=== PATIENT | male | born 1960 | race Caucasian/White ===

== ENCOUNTER → 2016-07-08 | Outpatient (REF) | payer BC ==
[~2016-07-08] MED LIST: CITA10TA5 PO; COLA100C PO; ENAL10TA2 PO; MULTCAP PO; PERCOCET PO; TRUVTAB3 PO; TYLE167L PO; VALT1TAB PO
[2016-07-08 11:59] LABS: ALBUMIN 3.9 GM/DL (3.2-5.2); ALKALINE PHOSPHATASE 58 U/L (45-117); ALT/SGPT 27 U/L (12-78); ANION GAP 10 MEQ/L (8-16); AST/SGOT 18 U/L (15-37); BILIRUBIN,TOTAL 0.6 MG/DL (0.2-1.0); BLOOD UREA NITROGEN 12 MG/DL (7-18); CARBON DIOXIDE LEVEL 24 MEQ/L (21-32); CHLORIDE LEVEL 109 MEQ/L (98-107); CHOLESTEROL LEVEL 190 MG/DL (<200); CREATININE FOR GFR 1.07 MG/DL (0.70-1.30); GLOMERULAR FILTRATION RATE > 60.0 (>56); GLUCOSE, FASTING 95 MG/DL (70-105); POTASSIUM SERUM 4.9 MEQ/L (3.5-5.1); SODIUM LEVEL 143 MEQ/L (136-145); TOTAL PROTEIN 6.5 GM/DL (6.4-8.2); TRIGLYCERIDES LEVEL 119 MG/DL (<150)
[2016-07-10 00:07] LABS: %CD3+CD4+CD8+ 1.2 % (Not Estab.); %CD3+CD4+CD8- 30.8 % (Not Estab.); %CD3+CD4-CD8+ 35.3 % (Not Estab.); %CD3+CD4-CD8- 0.7 % (Not Estab.); ABS CD3+CD4+CD8+ 22 /uL (Not Estab.); ABS CD3+CD4+CD8- 554 /uL (Not Estab.); ABS CD3+CD4-CD8+ 635 /uL (Not Estab.); ABS CD3+CD4-CD8- 13 /uL (Not Estab.); CD4/CD8 NYSDOH RATIO 0.87 (Not Estab.); Eosinophils 3 % (.); HCT 47.6 % (37.5-51.0); HGB 15.6 g/dL (12.6-17.7); Monocytes 9 % (.); Neutrophils 54 % (.); WBC 5.4 x10E3/uL (3.4-10.8)
== END ==
LOC: M SFHCPLAZ 09:30
PROVIDERS: ATTEND Internal Medicine Infectious Disease
DX: Z13.220 Encounter for screening for lipoid disorders (principal); Z12.5 Encounter for screening for malignant neoplasm of prostate; B20 Human immunodeficiency virus [HIV] disease; N52.9 Male erectile dysfunction, unspecified; F33.0 Major depressive disorder, recurrent, mild
CPT/HCPCS: 36415; 80053; 80061; 81001; 84402; 84403; 86360; 86592; 87491; 87536; 87591; 88108; G0103

== ENCOUNTER → 2016-07-17 | Outpatient (REF) | payer BC | LOC: M SMT 17:04 | PROVIDERS: ATTEND Nurse Practitioner Women's Health | DX: Z12.5 Encounter for screening for malignant neoplasm of prostate (principal) ==

== ENCOUNTER → 2017-01-06 | Outpatient (REF) | payer BC ==
[~2017-01-06] MED LIST changes: -COLA100C PO; +COLA100C5 PO; +TRUVTAB PO; -TRUVTAB3 PO
[2017-01-06 12:24] LABS: ALBUMIN 4.3 GM/DL (3.2-5.2); ALBUMIN/GLOBULIN RATIO 1.79 (1.00-1.93); ALKALINE PHOSPHATASE 57 U/L (45-117); ALT/SGPT 29 U/L (12-78); ANION GAP 9 MEQ/L (8-16); AST/SGOT 18 U/L (15-37); BILIRUBIN,TOTAL 0.4 MG/DL (0.2-1.0); BLOOD UREA NITROGEN 16 MG/DL (7-18); CARBON DIOXIDE LEVEL 25 MEQ/L (21-32); CHLORIDE LEVEL 105 MEQ/L (98-107); CREATININE FOR GFR 1.24 MG/DL (0.70-1.30); GLOMERULAR FILTRATION RATE > 60.0 (>56); GLUCOSE, FASTING 87 MG/DL (70-105); POTASSIUM SERUM 4.5 MEQ/L (3.5-5.1); SODIUM LEVEL 139 MEQ/L (136-145); TOTAL PROTEIN 6.7 GM/DL (6.4-8.2)
[2017-01-08 14:15] LABS: %CD3+CD4+CD8+ 1.2 % (Not Estab.); %CD3+CD4+CD8- 31.2 % (Not Estab.); %CD3+CD4-CD8+ 36.2 % (Not Estab.); %CD3+CD4-CD8- 0.8 % (Not Estab.); ABS CD3+CD4+CD8+ 19 /uL (Not Estab.); ABS CD3+CD4+CD8- 499 /uL (Not Estab.); ABS CD3+CD4-CD8+ 579 /uL (Not Estab.); ABS CD3+CD4-CD8- 13 /uL (Not Estab.); CD4/CD8 NYSDOH RATIO 0.86 (Not Estab.); Eosinophils 4 % (.); HCT 48.8 % (37.5-51.0); HGB 16.6 g/dL (12.6-17.7); Monocytes 7 % (.); Neutrophils 54 % (.); WBC 4.7 x10E3/uL (3.4-10.8)
== END ==
LOC: M SFHCPLAZ 08:43
PROVIDERS: ATTEND Internal Medicine Infectious Disease
DX: B20 Human immunodeficiency virus [HIV] disease (principal); Z12.5 Encounter for screening for malignant neoplasm of prostate
CPT/HCPCS: 80053; 81001; 86360; 87536; G0103

== ENCOUNTER → 2017-07-08 | Outpatient (REF) | payer BC ==
[2017-07-08 13:24] LABS: CHLAMYDIA DNA AMPLIFICATION NEGATIVE (NEGATIVE); GC DNA AMPLIFICATION NEGATIVE (NEGATIVE)
[2017-07-08 13:32] LABS: VITAMIN B12 LEVEL 687 PG/ML
[2017-07-08 13:39] LABS: ALBUMIN 4.3 GM/DL (3.2-5.2); ALBUMIN/GLOBULIN RATIO 1.48 (1.00-1.93); ALKALINE PHOSPHATASE 72 U/L (45-117); ALT/SGPT 37 U/L (12-78); ANION GAP 7 MEQ/L (8-16); AST/SGOT 25 U/L (7-37); BILIRUBIN,TOTAL 0.3 MG/DL (0.2-1.0); BLOOD UREA NITROGEN 13 MG/DL (7-18); CALCIUM LEVEL 9.2 MG/DL (8.5-10.1); CARBON DIOXIDE LEVEL 27 MEQ/L (21-32); CHLORIDE LEVEL 107 MEQ/L (98-107); CREATININE FOR GFR 1.25 MG/DL (0.70-1.30); FREE T4 0.88 NG/DL (0.76-1.46); GLOMERULAR FILTRATION RATE > 60.0 (>56); GLUCOSE, FASTING 97 MG/DL (70-105); MAGNESIUM LEVEL 2.3 MG/DL (1.8-2.4); POTASSIUM SERUM 4.7 MEQ/L (3.5-5.1); SODIUM LEVEL 141 MEQ/L (136-145); TOTAL PROTEIN 7.2 GM/DL (6.4-8.2)
[2017-07-11 00:06] LABS: % CD8 Pos Lymph 35.9 % (12.0-35.5); %CD4 Pos Lymphs 32.2 % (30.8-58.5); ABS Basophils 0.1 x10E3/uL (0.0-0.2); ABS Eosinophils 0.2 x10E3/uL (0.0-0.4); ABS Lymphs 1.9 x10E3/uL (0.7-3.1); ABS Monocytes 0.6 x10E3/uL (0.1-0.9); ABS Neutophils 4.2 x10E3/uL (1.4-7.0); Abs CD4 Helper 612 /uL (359-1519); Abs CD8 Suppres 682 /uL (109-897); Eosinophils 3 % (Not Estab.); HCT 48.5 % (37.5-51.0); HGB 16.7 g/dL (13.0-17.7); HIV-1 RNA PCR QUANT 2 LC550285 <20 copies/mL (.); Immature Grans 0 % (Not Estab.); Lymphocytes 27 % (Not Estab.); MCH 32.9 pg (26.6-33.0); MCHC 34.4 g/dL (31.5-35.7); MCV 96 fL (79-97); Monocytes 8 % (Not Estab.); Neutrophils 61 % (Not Estab.); Platelets 260 x10E3/uL (150-379); RBC 5.08 x10E6/uL (4.14-5.80); RDW 13.8 % (12.3-15.4); RPR Non Reactive (Non Reactive); TESTOSTERONE FREE (DIRECT) 11.9 pg/mL (7.2-24.0); WBC 6.9 x10E3/uL (3.4-10.8)
== END ==
LOC: M SFHCPLAZ 10:02
DX: F33.0 Major depressive disorder, recurrent, mild (principal); R53.82 Chronic fatigue, unspecified; B20 Human immunodeficiency virus [HIV] disease; A52.8 Late syphilis, latent
CPT/HCPCS: 82746

== ENCOUNTER → 2017-12-30 | Outpatient (REF) | payer BC ==
[2017-12-30 17:57] LABS: APPEARANCE, URINE CLEAR (CLEAR); BACTERIA, URINE AUTO NEGATIVE (NEGATIVE); BILIRUBIN, URINE AUTO NEGATIVE (NEGATIVE); BLOOD, URINE BLOOD NEGATIVE (NEGATIVE); COLOR, URINE YELLOW (YELLOW); GLUCOSE, URINE (UA) AUTO NEGATIVE (NEGATIVE); KETONE, URINE AUTO NEGATIVE (NEGATIVE); LEUKOCYTE ESTERASE, URINE AUTO NEGATIVE (NEGATIVE); MUCUS, URINE SMALL (NEGATIVE); NITRITE, URINE AUTO NEGATIVE (NEGATIVE); PROTEIN, URINE AUTO NEGATIVE (NEGATIVE); RBC, URINE AUTO 1 /HPF (0-3); SPECIFIC GRAVITY URINE AUTO 1.014 (1.002-1.035); SQUAMOUS EPITHELIAL CELL UR AU 0 /HPF (0-6); UROBILINOGEN, URINE AUTO 0.2 mg/dL (0.0-2.0); WBC, URINE AUTO 0 /HPF (0-3)
[2017-12-30 19:12] LABS: CHLAMYDIA DNA AMPLIFICATION NEGATIVE (NEGATIVE); GC DNA AMPLIFICATION NEGATIVE (NEGATIVE)
[2018-01-02 16:20] LABS: % CD8 Pos Lymph 39.7 % (12.0-35.5); %CD4 Pos Lymphs 29.9 % (30.8-58.5); ABS Basophils 0.1 x10E3/uL (0.0-0.2); ABS Eosinophils 0.1 x10E3/uL (0.0-0.4); ABS Lymphs 1.9 x10E3/uL (0.7-3.1); ABS Monocytes 0.4 x10E3/uL (0.1-0.9); ABS Neutophils 3.1 x10E3/uL (1.4-7.0); Abs CD4 Helper 568 /uL (359-1519); Abs CD8 Suppres 754 /uL (109-897); CD4/CD8 Ratio 0.75 (0.92-3.72); CHLAMYDIA PHARYNGEAL APTIMA Negative (Negative); Eosinophils 3 % (Not Estab.); GC PHARYNGEAL APTIMA Negative (Negative); HCT 48.6 % (37.5-51.0); HGB 15.8 g/dL (13.0-17.7); HIV-1 RNA PCR QUANT 2 LC550285 <20 copies/mL (.); Immature Grans 0 % (Not Estab.); Lymphocytes 35 % (Not Estab.); MCH 33.3 pg (26.6-33.0); MCHC 32.5 g/dL (31.5-35.7); MCV 103 fL (79-97); Monocytes 6 % (Not Estab.); Neutrophils 55 % (Not Estab.); Platelets 220 x10E3/uL (150-379); RBC 4.74 x10E6/uL (4.14-5.80); RDW 14.1 % (12.3-15.4); RPR Non Reactive (Non Reactive); WBC 5.5 x10E3/uL (3.4-10.8)
== END ==
LOC: M SFHCPLAZ 09:54
DX: B20 Human immunodeficiency virus [HIV] disease (principal); Z12.5 Encounter for screening for malignant neoplasm of prostate; Z72.52 High risk homosexual behavior
CPT/HCPCS: 87536

== ENCOUNTER 2018-02-24 06:52 | Day surgery (SDC) | payer BC ==
[2018-02-24] MEDS: NS 1,000 ML IV (07:16)
[2018-02-24] MEDS ORDERED: PROPOFOL 200 MG/20 ML VIAL As Ordered (07:23)
[2018-02-24] MEDS ORDERED: fentaNYL 100 MCG/2 ML INJECTION (J3010) As Ordered (07:42)
== END 2018-02-24 09:22 | disposition home or self-care (01) ==
LOC: M OPP 06:52
DX: Z12.11 Encounter for screening for malignant neoplasm of colon (principal); K64.0 First degree hemorrhoids; K62.1 Rectal polyp; R12 Heartburn; K22.8 Other specified diseases of esophagus; K21.9 Gastro-esophageal reflux disease without esophagitis; I10 Essential (primary) hypertension; F32.9 Major depressive disorder, single episode, unspecified; F41.9 Anxiety disorder, unspecified; Z79.899 Other long term (current) drug therapy; Z88.8 Allergy status to other drugs, medicaments and biological substances; Z91.018 Allergy to other foods; Z86.19 Personal history of other infectious and parasitic diseases; Z21 Asymptomatic human immunodeficiency virus [HIV] infection status; Z91.89 Other specified personal risk factors, not elsewhere classified; Z80.3 Family history of malignant neoplasm of breast
CPT/HCPCS: 45385

== ENCOUNTER → 2018-05-04 | Outpatient (REF) | payer BC ==
[2018-05-04 13:09] LABS: ALBUMIN 3.7 GM/DL (3.2-5.2); ALBUMIN/GLOBULIN RATIO 1.32 (1.00-1.93); ALKALINE PHOSPHATASE 62 U/L (45-117); ALT/SGPT 43 U/L (12-78); ANION GAP 8 MEQ/L (8-16); AST/SGOT 27 U/L (7-37); BILIRUBIN,TOTAL 0.5 MG/DL (0.2-1.0); BLOOD UREA NITROGEN 13 MG/DL (7-18); CALCIUM LEVEL 8.8 MG/DL (8.5-10.1); CARBON DIOXIDE LEVEL 27 MEQ/L (21-32); CHLORIDE LEVEL 104 MEQ/L (98-107); CHOLESTEROL LEVEL 242 MG/DL (<200); CHOLESTEROL RISK RATIO 7.333 (<5); CREATININE FOR GFR 1.39 MG/DL (0.70-1.30); GLOMERULAR FILTRATION RATE 56.1 (>56); GLUCOSE, FASTING 88 MG/DL (70-100); HDL CHOLESTEROL 33 MG/DL (>40); LDL CHOLESTEROL 176 MG/DL (<100); NON-HDL-C 209 MG/DL; POTASSIUM SERUM 4.6 MEQ/L (3.5-5.1); SODIUM LEVEL 139 MEQ/L (136-145); TOTAL PROTEIN 6.5 GM/DL (6.4-8.2); TRIGLYCERIDES LEVEL 167 MG/DL (<150)
[2018-05-07 00:07] LABS: % CD8 Pos Lymph 37.9 % (12.0-35.5); %CD4 Pos Lymphs 31.9 % (30.8-58.5); ABS Basophils 0.1 x10E3/uL (0.0-0.2); ABS Eosinophils 0.2 x10E3/uL (0.0-0.4); ABS Monocytes 0.6 x10E3/uL (0.1-0.9); ABS Neutophils 2.9 x10E3/uL (1.4-7.0); Abs CD4 Helper 638 /uL (359-1519); Abs CD8 Suppres 758 /uL (109-897); CD4/CD8 Ratio 0.84 (0.92-3.72); Eosinophils 3 % (Not Estab.); HCT 48.4 % (37.5-51.0); HGB 16.2 g/dL (13.0-17.7); HIV-1 RNA PCR QUANT 2 LC550285 <20 copies/mL (.); Immature Grans 0 % (Not Estab.); Lymphocytes 34 % (Not Estab.); MCH 33.3 pg (26.6-33.0); MCHC 33.5 g/dL (31.5-35.7); MCV 99 fL (79-97); Monocytes 10 % (Not Estab.); Neutrophils 52 % (Not Estab.); Platelets 216 x10E3/uL (150-379); RBC 4.87 x10E6/uL (4.14-5.80); RDW 14.3 % (12.3-15.4); WBC 5.7 x10E3/uL (3.4-10.8)
== END ==
LOC: M SFHCPLAZ 09:07
DX: R07.9 Chest pain, unspecified (principal); B20 Human immunodeficiency virus [HIV] disease
CPT/HCPCS: 80053

== ENCOUNTER → 2018-05-29 | Outpatient (REF) | payer BC ==
[2018-05-29 12:18] LABS: CHOLESTEROL LEVEL 135 MG/DL (<200); HDL CHOLESTEROL 33 MG/DL (>40); LDL CHOLESTEROL 75 MG/DL (<100); NON-HDL-C 102 MG/DL; TRIGLYCERIDES LEVEL 136 MG/DL (<150)
== END ==
LOC: M SFHCPLAZ 08:29
DX: E78.00 Pure hypercholesterolemia, unspecified (principal)
CPT/HCPCS: 80061

== ENCOUNTER → 2018-11-17 | Outpatient (REF) | payer BC ==
[~2018-11-17] MED LIST changes: +ALPR0.25 PO; +GENV1TAB PO; +OMEP40CA2 PO
[2018-11-17 12:06] LABS: APPEARANCE, URINE CLEAR (CLEAR); BACTERIA, URINE AUTO NEGATIVE (NEGATIVE); BILIRUBIN, URINE AUTO NEGATIVE (NEGATIVE); BLOOD, URINE BLOOD NEGATIVE (NEGATIVE); COLOR, URINE YELLOW (YELLOW); GLUCOSE, URINE (UA) AUTO NEGATIVE (NEGATIVE); KETONE, URINE AUTO NEGATIVE (NEGATIVE); LEUKOCYTE ESTERASE, URINE AUTO NEGATIVE (NEGATIVE); MUCUS, URINE SMALL (NEGATIVE); NITRITE, URINE AUTO NEGATIVE (NEGATIVE); PROTEIN, URINE AUTO NEGATIVE (NEGATIVE); RBC, URINE AUTO 0 /HPF (0-3); SPECIFIC GRAVITY URINE AUTO 1.015 (1.002-1.035); SQUAMOUS EPITHELIAL CELL UR AU 0 /HPF (0-6); UROBILINOGEN, URINE AUTO 0.2 mg/dL (0.0-2.0); WBC, URINE AUTO 1 /HPF (0-3)
[2018-11-17 12:47] LABS: ALBUMIN 3.9 GM/DL (3.2-5.2); ALT/SGPT 53 U/L (12-78); BILIRUBIN,TOTAL 0.6 MG/DL (0.2-1.0); BLOOD UREA NITROGEN 11 MG/DL (7-18); CALCIUM LEVEL 8.6 MG/DL (8.5-10.1); CARBON DIOXIDE LEVEL 25 MEQ/L (21-32); CHLORIDE LEVEL 107 MEQ/L (98-107); CHOLESTEROL LEVEL 128 MG/DL (<200); CHOLESTEROL RISK RATIO 3.657 (<5); CREATININE FOR GFR 1.18 MG/DL (0.70-1.30); GLOMERULAR FILTRATION RATE > 60.0 (>56); GLUCOSE, FASTING 87 MG/DL (70-100); HDL CHOLESTEROL 35 MG/DL (>40); LDL CHOLESTEROL 69 MG/DL (<100); NON-HDL-C 93 MG/DL; POTASSIUM SERUM 4.5 MEQ/L (3.5-5.1); SODIUM LEVEL 143 MEQ/L (136-145); TOTAL PROTEIN 6.8 GM/DL (6.4-8.2); TRIGLYCERIDES LEVEL 119 MG/DL (<150)
[2018-11-17 14:11] LABS: CHLAMYDIA DNA AMPLIFICATION NEGATIVE (NEGATIVE); GC DNA AMPLIFICATION NEGATIVE (NEGATIVE)
[2018-11-23 15:22] LABS: % CD8 Pos Lymph 34.9 % (12.0-35.5); ABS Basophils 0.1 x10E3/uL (0.0-0.2); ABS Eosinophils 0.3 x10E3/uL (0.0-0.4); ABS Lymphs 1.9 x10E3/uL (0.7-3.1); ABS Monocytes 0.4 x10E3/uL (0.1-0.9); ABS Neutophils 3.4 x10E3/uL (1.4-7.0); Abs CD4 Helper 703 /uL (359-1519); Abs CD8 Suppres 663 /uL (109-897); CD4/CD8 Ratio 1.06 (0.92-3.72); Eosinophils 5 % (Not Estab.); HCT 45.5 % (37.5-51.0); HGB 15.7 g/dL (13.0-17.7); HIV-1 RNA PCR QUANT 2 LC550285 <20 copies/mL (.); Immature Grans 0 % (Not Estab.); Lymphocytes 32 % (Not Estab.); MCH 33.2 pg (26.6-33.0); MCHC 34.5 g/dL (31.5-35.7); MCV 96 fL (79-97); Monocytes 6 % (Not Estab.); Neutrophils 55 % (Not Estab.); Platelets 213 x10E3/uL (150-450); RBC 4.73 x10E6/uL (4.14-5.80); RDW 14.1 % (12.3-15.4); RPR Non Reactive (Non Reactive); WBC 6.1 x10E3/uL (3.4-10.8)
== END ==
LOC: M SFHCPLAZ 08:17
PROVIDERS: ATTEND Internal Medicine Infectious Disease
DX: B20 Human immunodeficiency virus [HIV] disease (principal); E78.00 Pure hypercholesterolemia, unspecified; A52.8 Late syphilis, latent; N40.2 Nodular prostate without lower urinary tract symptoms
CPT/HCPCS: 36415; 80053; 80061; 81001; 86360; 86592; 87491; 87536; 87591; G0103

== ENCOUNTER → 2018-11-23 | Outpatient (REF) | payer BC ==
[2018-11-23 12:48] LABS: CHLAMYDIA DNA AMPLIFICATION NEGATIVE (NEGATIVE); GC DNA AMPLIFICATION NEGATIVE (NEGATIVE)
[2018-11-25 08:07] LABS: CHLAMYDIA PHARYNGEAL APTIMA Negative (Negative); GC PHARYNGEAL APTIMA Negative (Negative)
[2018-11-25 18:27] LABS: CHLAMYDIA RECTAL APTIMA Negative (Negative); GC RECTAL APTIMA Negative (Negative)
== END ==
LOC: M SFHCPLAZ 10:24
PROVIDERS: ATTEND Internal Medicine Infectious Disease
DX: B20 Human immunodeficiency virus [HIV] disease (principal)

== ENCOUNTER → 2019-03-29 | Outpatient (REF) | payer BC ==
[~2019-03-29] MED LIST changes: +MAXA10TA14 PO; -OMEP40CA2 PO; +OMEP40CA97 PO
[2019-03-29 14:02] LABS: ALBUMIN 3.6 GM/DL (3.2-5.2); ALT/SGPT 32 U/L (12-78); BILIRUBIN,TOTAL 0.4 MG/DL (0.2-1.0); BLOOD UREA NITROGEN 10 MG/DL (7-18); CARBON DIOXIDE LEVEL 29 MEQ/L (21-32); CHLORIDE LEVEL 107 MEQ/L (98-107); CREATININE FOR GFR 1.22 MG/DL (0.70-1.30); GLOMERULAR FILTRATION RATE > 60.0 (>56); GLUCOSE, FASTING 89 MG/DL (70-100); POTASSIUM SERUM 4.3 MEQ/L (3.5-5.1); SODIUM LEVEL 141 MEQ/L (136-145); TOTAL PROTEIN 6.9 GM/DL (6.4-8.2)
[2019-04-01 00:07] LABS: % CD8 Pos Lymph 34.3 % (12.0-35.5); ABS Eosinophils 0.2 x10E3/uL (0.0-0.4); ABS Lymphs 1.3 x10E3/uL (0.7-3.1); ABS Monocytes 0.5 x10E3/uL (0.1-0.9); Abs CD4 Helper 494 /uL (359-1519); Abs CD8 Suppres 446 /uL (109-897); CD4/CD8 Ratio 1.11 (0.92-3.72); Eosinophils 3 % (Not Estab.); HCT 45.2 % (37.5-51.0); HEPATITIS C QUANTITATION HCV Not Detected IU/mL (.); HGB 15.5 g/dL (13.0-17.7); HIV-1 RNA PCR QUANT 2 LC550285 <20 copies/mL (.); Immature Grans 0 % (Not Estab.); Lymphocytes 21 % (Not Estab.); MCH 32.9 pg (26.6-33.0); MCHC 34.3 g/dL (31.5-35.7); MCV 96 fL (79-97); Monocytes 9 % (Not Estab.); Neutrophils 66 % (Not Estab.); Platelets 337 x10E3/uL (150-450); RBC 4.71 x10E6/uL (4.14-5.80); RDW 13.4 % (12.3-15.4); RPR Non Reactive (Non Reactive)
== END ==
LOC: M SFHCPLAZ 09:19
PROVIDERS: ATTEND Internal Medicine Infectious Disease
DX: B20 Human immunodeficiency virus [HIV] disease (principal); A52.8 Late syphilis, latent

== ENCOUNTER → 2019-04-07 | Outpatient (CLI) | payer BC ==
[~2019-04-07] MED LIST changes: -MAXA10TA14 PO
--- NOTE | 2019-04-07 08:19 | REP ---
Clinical: Hepatitis C. Technique: Real time benito scale ultrasound examination using curved array transducer. Findings: Liver is hyperechoic and demonstrates somewhat coarsened echotexture. An echogenic masses measuring 1.9 x 1.4 x 1.5 cm which may represent hemangioma and 8.2 x 6.0 x 7.9 cm lesion with some element of heterogeneity cannot be defined by current ultrasound, but appear to be consistent with hemangiomas based on the previous MRI dated 03/06/2012. Pancreas is incompletely evaluated due to interposed bowel gas. Gallbladder demonstrates 1.2 cm gallstone at the neck of the gallbladder along with 1 mm benign appearing polyp. No gallbladder wall thickening or pericholecystic fluid is appreciated. No biliary ductal dilatation is identified and the common bile duct measures 4.0 mm diameter. Right kidney is normal in reniform shape and measures 11.3 x 6.0 x 5.0 cm without hydronephrosis and includes 2.4 x 2.2 x 2.0 cm upper pole cyst. Impression: 1. Hepatic lesions similar to prior MRI dated 2011 likely representing hemangiomas. Pre and postcontrast CT of the abdomen may be considered for definitive evaluation. 2. Cholelithiasis. 3. 2.4 cm right renal cyst. Electronically Signed by Pedro Alejo MD 04/07/2019 08:11 A
== END ==
LOC: M RAD 07:05
PROVIDERS: ATTEND Internal Medicine Infectious Disease
DX: K76.9 Liver disease, unspecified (principal); K80.00 Calculus of gallbladder with acute cholecystitis without obstruction; N28.1 Cyst of kidney, acquired; Z86.19 Personal history of other infectious and parasitic diseases

== ENCOUNTER 2019-06-18 06:06 | Day surgery (SDC) | payer BC ==
[~2019-06-18] VITALS: Ht 185.4 cm; Wt 84.3 kg
[~2019-06-18 06:06] MED LIST changes: +AMPICILLIN SOD/SULBACTAM SOD 3 GM in D5W MINI-BAG PLUS 100 ML IV ONE; +LIDOCAINE 1% MDV 20ML VIAL SQ PRN; +LR 1,000 ML IV ONE; +MAXA10TA14 PO
[2019-06-18 06:36] LABS: HEMATOCRIT 47.7 % (42.0-52.0); HEMOGLOBIN 15.8 g/dl (13.5-17.5); MEAN CORPUSCULAR HEMOGLOBIN 32.2 pg (27.0-33.0); MEAN CORPUSCULAR HGB CONC 33.1 g/dl (32.0-36.5); MEAN CORPUSCULAR VOLUME 97.1 fl (80.0-96.0); PLATELET COUNT, AUTOMATED 263 10^3/uL (150-450); RED BLOOD COUNT 4.91 10^6/uL (4.30-6.10); WHITE BLOOD COUNT 5.8 10^3/uL (4.0-10.0)
[2019-06-18] MEDS ORDERED: CONRAY-60 60% 50ML VIAL (Q9961) As Ordered ONE (06:54)
[2019-06-18] MEDS ORDERED: LIDOCAINE 1% SDV INJ 30 ML VIAL As Ordered ONE (06:54)
[2019-06-18] MEDS ORDERED: BUPIVACAINE HCL 0.25% 30 ML VIAL As Ordered ONE (06:54)
[2019-06-18] MEDS ORDERED: PROPOFOL 200 MG/20 ML VIAL As Ordered ONE (07:13)
[2019-06-18] MEDS ORDERED: dexameTHASONE 4 MG/ML 1ML VIAL (J1100) As Ordered ONE (07:13)
[2019-06-18] MEDS ORDERED: ONDANSETRON 4MG/2ML VIAL (J2405) As Ordered ONE (07:13)
[2019-06-18] MEDS ORDERED: LIDOCAINE 2% INJ 100 MG/5 ML SDV (FOR ANES.) As Ordered ONE (07:13)
[2019-06-18] MEDS ORDERED: ROCURONIUM BROMIDE 50 MG/5 ML VIAL As Ordered ONE (07:13)
[2019-06-18] MEDS ORDERED: MIDAZOLAM INJ 2 MG/2 ML VIAL (J2250) As Ordered ONE (07:17)
[2019-06-18] MEDS ORDERED: fentaNYL 100 MCG/2 ML INJECTION (J3010) As Ordered ONE ×3 (07:17→09:05)
[2019-06-18] MEDS ORDERED: SCOPOLAMINE 1MG TRANSDERMAL PATCH As Ordered ONE (07:25)
[2019-06-18] MEDS ORDERED: SUGAMMADEX SODIUM 500 MG/5 ML VIAL (BRIDION) As Ordered ONE (07:52)
[2019-06-18] MEDS ORDERED: KETOROLAC 60 MG/2 ML VIAL (J1885) As Ordered ONE (07:52)
[2019-06-18] MEDS ORDERED: SCOPOLAMINE 1MG TRANSDERMAL PATCH TOP ONE (08:00)
[2019-06-18] MEDS ORDERED: ePHEDrine SULFATE 25 MG/5 ML(5MG/ML) SYRINGE As Ordered ONE (08:58)
[2019-06-18] MEDS ORDERED: KETOROLAC 30 MG/ML VIAL (J1885) IV PRN (09:45)
[2019-06-18] MEDS ORDERED: LR 1,000 ML IV SCH (09:45)
[2019-06-18] MEDS ORDERED: MEPERIDINE INJ 25 MG/ML VIAL (J2175) IV PRN (09:45)
[2019-06-18] MEDS ORDERED: fentaNYL 100 MCG/2 ML INJECTION (J3010) IV PRN (09:45)
[2019-06-18] MEDS ORDERED: METOCLOPRAMIDE INJ 10MG/2ML VIAL (J2765) IV PRN (09:45)
[2019-06-18] MEDS ORDERED: NORCO, ANEXSIA 5/325MG TABLET (HYDROcodone/ACETAMINOPHEN) PO PRN ×2 (09:45)
[2019-06-18] MEDS ORDERED: ONDANSETRON 4MG/2ML VIAL (J2405) IV PRN (09:45)
[2019-06-18] MEDS ORDERED: oxyCODONE 5MG TAB PO PRN (09:45)
[2019-06-18 12:20] VITALS: BP 111/73
--- NOTE | 2019-06-20 23:57 | ECGEPIP ---
[facility] [place] Test Date: 2019-06-18 Pat Name: CARMINA PACKER Department: Room: - Gender: Male Safety Tech: PABLO : 1960 Requested By: BRETT Almodovar Order Number: [id number] Reading MD: Mc Gonzalez Measurements Intervals [place] Rate: 77 P: 57 SD: 128 QRS: 59 QRSD: 106 T: 55 QT: 401 QTc: 456 Interpretive Statements SINUS RHYTHM Low QRS complex voltage in the limb leads Comparison tracing not on file Electronically Signed on 06-20-2019 23:57:39 EST by Mc Gonzalez
== END 2019-06-18 12:20 | disposition home or self-care (01) ==
LOC: M SDC 06:06
PROVIDERS: ATTEND Surgery
DX: K80.10 Calculus of gallbladder with chronic cholecystitis without obstruction (principal); I10 Essential (primary) hypertension; E78.5 Hyperlipidemia, unspecified; B18.2 Chronic viral hepatitis C; B20 Human immunodeficiency virus [HIV] disease; F41.9 Anxiety disorder, unspecified; F32.9 Major depressive disorder, single episode, unspecified; Z79.899 Other long term (current) drug therapy; G43.909 Migraine, unspecified, not intractable, without status migrainosus; Z88.2 Allergy status to sulfonamides
CPT/HCPCS: 36415; 47562; 84484; 85027; 88304; 93005; J1100; J1885; J2250; J2405; J3010

== ENCOUNTER → 2019-07-27 | Outpatient (REF) | payer BC ==
[~2019-07-27] MED LIST changes: -AMPICILLIN SOD/SULBACTAM SOD 3 GM in D5W MINI-BAG PLUS 100 ML IV ONE; -LIDOCAINE 1% MDV 20ML VIAL SQ PRN; -LR 1,000 ML IV ONE
[2019-07-27 11:48] LABS: ALBUMIN 3.9 GM/DL (3.2-5.2); ALT/SGPT 46 U/L (12-78); BILIRUBIN,TOTAL 0.2 MG/DL (0.2-1.0); BLOOD UREA NITROGEN 14 MG/DL (7-18); CARBON DIOXIDE LEVEL 28 MEQ/L (21-32); CHLORIDE LEVEL 111 MEQ/L (98-107); CREATININE FOR GFR 1.04 MG/DL (0.70-1.30); GLOMERULAR FILTRATION RATE > 60.0 (>56); GLUCOSE, FASTING 90 MG/DL (70-100); POTASSIUM SERUM 4.8 MEQ/L (3.5-5.1); SODIUM LEVEL 143 MEQ/L (136-145); TOTAL PROTEIN 6.6 GM/DL (6.4-8.2)
[2019-07-27 11:54] LABS: TOTAL 25(OH) VITAMIN D 53.5 NG/ML (30.0-100.0)
[2019-07-27 13:22] LABS: CHLAMYDIA DNA AMPLIFICATION NEGATIVE (NEGATIVE); GC DNA AMPLIFICATION NEGATIVE (NEGATIVE)
== END ==
LOC: M SFHCPLAZ 09:11
PROVIDERS: ATTEND Internal Medicine Infectious Disease
DX: B20 Human immunodeficiency virus [HIV] disease (principal); M81.0 Age-related osteoporosis without current pathological fracture

== ENCOUNTER → 2019-08-13 | Outpatient (CLI) | payer BC ==
--- NOTE | 2019-08-17 10:13 | DEXA ---
AP SPINE L1 - L4 1.034 -1.3 -1.3 LT FEMUR TOTAL 0.833 -1.4 -1.4 LT NECK 0.779 -1.9 -1.3 RT FEMUR TOTAL 0.840 -1.3 -1.4 RT NECK 0.793 -1.8 -1.2 TOTAL BODY TOTAL OTHER COMMENTS: There is low bone density of the spine and hips. The density of the spine has increased 0.6% since 12/14/2014. The density of the left hip has increased 2.2% since 12/14/2014. The density of the right hip has increased 2.9% since 12/14/2014. FOLLOW-UP: Recommendation for the next bone density exam: 2 years. JANETH
== END ==
LOC: M WHC 15:29
PROVIDERS: ATTEND Internal Medicine Infectious Disease
DX: M81.0 Age-related osteoporosis without current pathological fracture (principal); M85.851 Other specified disorders of bone density and structure, right thigh; M85.852 Other specified disorders of bone density and structure, left thigh; M85.88 Other specified disorders of bone density and structure, other site

== ENCOUNTER → 2020-01-31 | Outpatient (REF) | payer BC ==
[~2020-01-31] MED LIST changes: +ENAL-36 PO; -ENAL10TA2 PO
[2020-03-27 11:09] LABS: Abs CD4 Helper See Separate Report; HIV-1 RNA PCR QUANT 2 LC550285 SEE SEPARATE REPORT (NORMAL)
== END ==
LOC: M SFHCPLAZ 09:33
PROVIDERS: ATTEND Internal Medicine Infectious Disease
DX: B20 Human immunodeficiency virus [HIV] disease (principal); F41.9 Anxiety disorder, unspecified

== ENCOUNTER → 2020-08-07 | Outpatient (REF) | payer BC ==
[2020-08-07 14:38] LABS: APPEARANCE, URINE CLEAR (CLEAR); BACTERIA, URINE AUTO NEGATIVE (NEGATIVE); BILIRUBIN, URINE AUTO NEGATIVE (NEGATIVE); BLOOD, URINE BLOOD NEGATIVE (NEGATIVE); COLOR, URINE YELLOW (YELLOW); GLUCOSE, URINE (UA) AUTO NEGATIVE (NEGATIVE); KETONE, URINE AUTO NEGATIVE (NEGATIVE); LEUKOCYTE ESTERASE, URINE AUTO NEGATIVE (NEGATIVE); MUCUS, URINE SMALL (NEGATIVE); NITRITE, URINE AUTO NEGATIVE (NEGATIVE); PROTEIN, URINE AUTO NEGATIVE (NEGATIVE); RBC, URINE AUTO 1 /HPF (0-3); SPECIFIC GRAVITY URINE AUTO 1.019 (1.002-1.035); SQUAMOUS EPITHELIAL CELL UR AU 0 /HPF (0-6); WBC, URINE AUTO 1 /HPF (0-3)
[2020-08-07 14:59] LABS: BILIRUBIN,TOTAL 0.5 MG/DL (0.2-1.0); CALCIUM LEVEL 8.9 MG/DL (8.8-10.2); CHOLESTEROL RISK RATIO 5.862 (<5); CREATININE FOR GFR 1.32 MG/DL (0.70-1.30); GLOMERULAR FILTRATION RATE 58.9 (>49); POTASSIUM SERUM 4.5 MEQ/L (3.5-5.1); TOTAL 25(OH) VITAMIN D 32.1 NG/ML (30.0-100.0); TOTAL PROTEIN 6.6 GM/DL (6.4-8.2)
[2020-08-07 15:35] LABS: CHLAMYDIA DNA AMPLIFICATION NEGATIVE (NEGATIVE); GC DNA AMPLIFICATION NEGATIVE (NEGATIVE)
[2020-08-09 01:06] LABS: % CD8 Pos Lymph 31.9 % (12.0-35.5); %CD4 Pos Lymphs 38.1 % (30.8-58.5); ABS Basophils 0.1 x10E3/uL (0.0-0.2); ABS Eosinophils 0.2 x10E3/uL (0.0-0.4); ABS Lymphs 1.3 x10E3/uL (0.7-3.1); ABS Monocytes 0.7 x10E3/uL (0.1-0.9); ABS Neutophils 1.9 x10E3/uL (1.4-7.0); Abs CD4 Helper 495 /uL (359-1519); Abs CD8 Suppres 415 /uL (109-897); CD4/CD8 Ratio 1.19 (0.92-3.72); Eosinophils 4 % (Not Estab.); HCT 48.2 % (37.5-51.0); HGB 16.8 g/dL (13.0-17.7); HIV-1 RNA PCR QUANT 2 LC550285 <20 copies/mL (.); Immature Grans 0 % (Not Estab.); Lymphocytes 32 % (Not Estab.); MCH 33.4 pg (26.6-33.0); MCHC 34.9 g/dL (31.5-35.7); MCV 96 fL (79-97); Monocytes 16 % (Not Estab.); Neutrophils 46 % (Not Estab.); Platelets 203 x10E3/uL (150-450); RBC 5.03 x10E6/uL (4.14-5.80); RDW 12.3 % (11.6-15.4); WBC 4.1 x10E3/uL (3.4-10.8)
== END ==
LOC: M SFHCPLAZ 09:12
PROVIDERS: ATTEND Internal Medicine Infectious Disease
DX: B20 Human immunodeficiency virus [HIV] disease (principal); M81.0 Age-related osteoporosis without current pathological fracture; Z12.5 Encounter for screening for malignant neoplasm of prostate; Z13.220 Encounter for screening for lipoid disorders
CPT/HCPCS: 36415; 80053; 80061; 81001; 82306; 86360; 87491; 87536; 87591; G0103

== ENCOUNTER → 2020-08-09 | Outpatient (CLI) | payer BC | LOC: M LAB 09:47 | PROVIDERS: ATTEND Internal Medicine Infectious Disease | DX: B20 Human immunodeficiency virus [HIV] disease (principal); M81.0 Age-related osteoporosis without current pathological fracture ==

== ENCOUNTER → 2020-10-13 | Outpatient (REF) | payer BC | LOC: M PLALAB 16:44 | PROVIDERS: ATTEND Physician Assistant | DX: Z11.3 Encounter for screening for infections with a predominantly sexual mode of transmission (principal) ==

== ENCOUNTER → 2020-10-13 | Outpatient (REF) | payer BC ==
[2020-10-13 23:17] LABS: CHLAMYDIA DNA AMPLIFICATION NEGATIVE (NEGATIVE); GC DNA AMPLIFICATION NEGATIVE (NEGATIVE)
[2020-10-16 10:08] LABS: CHLAMYDIA PHARYNGEAL APTIMA Negative (Negative); CHLAMYDIA RECTAL APTIMA Negative (Negative); GC PHARYNGEAL APTIMA Negative (Negative); GC RECTAL APTIMA Negative (Negative)
== END ==
LOC: M PLALAB 21:37
PROVIDERS: ATTEND Physician Assistant
DX: Z11.3 Encounter for screening for infections with a predominantly sexual mode of transmission (principal)

== ENCOUNTER → 2020-12-04 | Outpatient (REF) | payer BC ==
[~2020-12-04] MED LIST changes: +EMTR1TAB16 PO; -TRUVTAB PO
[2020-12-04 14:39] LABS: ALT/SGPT 30 U/L (12-78); BILIRUBIN,TOTAL 0.4 MG/DL (0.2-1.0); BLOOD UREA NITROGEN 12 MG/DL (7-18); CALCIUM LEVEL 9.3 MG/DL (8.8-10.2); CARBON DIOXIDE LEVEL 29 MEQ/L (21-32); CHLORIDE LEVEL 108 MEQ/L (98-107); CREATININE FOR GFR 1.11 MG/DL (0.70-1.30); GLOMERULAR FILTRATION RATE > 60.0 (>49); GLUCOSE, FASTING 90 MG/DL (70-100); POTASSIUM SERUM 4.8 MEQ/L (3.5-5.1); SODIUM LEVEL 140 MEQ/L (136-145); TOTAL PROTEIN 6.8 GM/DL (6.4-8.2)
[2020-12-04 15:48] LABS: CHLAMYDIA DNA AMPLIFICATION NEGATIVE (NEGATIVE); GC DNA AMPLIFICATION NEGATIVE (NEGATIVE)
[2020-12-06 12:08] LABS: CHLAMYDIA PHARYNGEAL APTIMA Negative (Negative); CHLAMYDIA RECTAL APTIMA Negative (Negative); GC PHARYNGEAL APTIMA Negative (Negative); GC RECTAL APTIMA Negative (Negative)
[2020-12-06 17:07] LABS: % CD8 Pos Lymph 37.7 % (12.0-35.5); ABS Basophils 0.1 x10E3/uL (0.0-0.2); ABS Eosinophils 0.3 x10E3/uL (0.0-0.4); ABS Lymphs 1.6 x10E3/uL (0.7-3.1); ABS Monocytes 0.5 x10E3/uL (0.1-0.9); ABS Neutophils 2.9 x10E3/uL (1.4-7.0); Abs CD4 Helper 512 /uL (359-1519); Abs CD8 Suppres 603 /uL (109-897); CD4/CD8 Ratio 0.85 (0.92-3.72); Eosinophils 5 % (Not Estab.); HCT 44.3 % (37.5-51.0); HGB 15.8 g/dL (13.0-17.7); HIV-1 RNA PCR QUANT 2 LC550285 <20 copies/mL (.); Immature Grans 0 % (Not Estab.); Lymphocytes 30 % (Not Estab.); MCH 33.7 pg (26.6-33.0); MCHC 35.7 g/dL (31.5-35.7); MCV 95 fL (79-97); Monocytes 9 % (Not Estab.); Neutrophils 54 % (Not Estab.); Platelets 225 x10E3/uL (150-450); RBC 4.69 x10E6/uL (4.14-5.80); RDW 13.8 % (11.6-15.4); RPR Reactive (Non Reactive); WBC 5.3 x10E3/uL (3.4-10.8)
== END ==
LOC: M SFHCPLAZ 09:02
PROVIDERS: ATTEND Internal Medicine Infectious Disease
DX: B20 Human immunodeficiency virus [HIV] disease (principal); R85.612 Low grade squamous intraepithelial lesion on cytologic smear of anus (LGSIL)

== ENCOUNTER → 2021-04-03 | Outpatient (CLI) | payer BC ==
[~2021-04-03] MED LIST changes: +OMEP40CA4 PO; -OMEP40CA97 PO
[2021-04-03 14:46] LABS: ALBUMIN 3.9 GM/DL (3.2-5.2); ALT/SGPT 83 U/L (12-78); BILIRUBIN,TOTAL 0.4 MG/DL (0.2-1.0); BLOOD UREA NITROGEN 13 MG/DL (7-18); CARBON DIOXIDE LEVEL 27 MEQ/L (21-32); CHLORIDE LEVEL 112 MEQ/L (98-107); CREATININE FOR GFR 1.01 MG/DL (0.70-1.30); GLOMERULAR FILTRATION RATE > 60.0 (>49); GLUCOSE, FASTING 98 MG/DL (70-100); POTASSIUM SERUM 4.7 MEQ/L (3.5-5.1); SODIUM LEVEL 142 MEQ/L (136-145); TOTAL PROTEIN 6.5 GM/DL (6.4-8.2)
== END ==
LOC: M PLALAB 10:25
PROVIDERS: ATTEND Internal Medicine Infectious Disease
DX: B20 Human immunodeficiency virus [HIV] disease (principal); R53.83 Other fatigue

== ENCOUNTER → 2021-05-01 | Outpatient (CLI) | payer BC ==
[2021-05-01 14:23] LABS: ALBUMIN 3.9 GM/DL (3.2-5.2); BILIRUBIN,DIRECT 0.1 MG/DL (0.0-0.2); BILIRUBIN,TOTAL 0.4 MG/DL (0.2-1.0); FREE T4 0.91 NG/DL (0.76-1.46); PERCENT SATURATION 23.3 % (19.7-50.0); THYROID STIMULATING HORMONE 1.16 uIU/ML (0.358-3.740); TOTAL PROTEIN 6.8 GM/DL (6.4-8.2)
[2021-05-01 14:24] LABS: FOLATE 22.3 NG/ML
[2021-05-02 13:08] LABS: HEPATITIS C QUANTITATION HCV Not Detected IU/mL (.)
== END ==
LOC: M PLALAB 09:52
PROVIDERS: ATTEND Internal Medicine Infectious Disease
DX: R94.5 Abnormal results of liver function studies (principal); Z86.19 Personal history of other infectious and parasitic diseases; N52.9 Male erectile dysfunction, unspecified; F33.0 Major depressive disorder, recurrent, mild

== ENCOUNTER → 2021-09-03 | Outpatient (REF) | payer BC ==
[~2021-09-03] MED LIST changes: -CITA10TA5 PO; +CITA10TA7 PO
== END ==
LOC: M SFHCPLAZ 16:57
PROVIDERS: ATTEND Physician Assistant
DX: R51.9 Headache, unspecified (principal); R53.81 Other malaise

== ENCOUNTER → 2021-09-03 | Outpatient (CLI) | payer BC ==
[2021-09-03 17:51] LABS: BASO # 0.1 10^3/uL (0.0-0.2); BASO % 0.8 % (0.0-1.0); EOS # 0.1 10^3/uL (0.0-0.5); EOS % 1.3 % (0.0-3.0); HEMATOCRIT 47.6 % (42.0-52.0); HEMOGLOBIN 16.4 g/dl (13.5-17.5); LYMPH # 1.4 10^3/uL (1.5-5.0); LYMPH % 23.9 % (24.0-44.0); MEAN CORPUSCULAR HEMOGLOBIN 32.9 pg (27.0-33.0); MEAN CORPUSCULAR HGB CONC 34.5 g/dl (32.0-36.5); MEAN CORPUSCULAR VOLUME 95.4 fl (80.0-96.0); MONO # 0.5 10^3/uL (0.0-0.8); MONO % 8.5 % (2.0-8.0); NEUTROPHILS # 3.9 10^3/uL (1.5-8.5); NEUTROPHILS % 65.2 % (36.0-66.0); PLATELET COUNT, AUTOMATED 243 10^3/uL (150-450); RED BLOOD COUNT 4.99 10^6/uL (4.30-6.10)
[2021-09-03 18:23] LABS: ALBUMIN 4.2 GM/DL (3.2-5.2); ALT/SGPT 36 U/L (12-78); BILIRUBIN,TOTAL 0.5 MG/DL (0.2-1.0); BLOOD UREA NITROGEN 11 MG/DL (7-18); CALCIUM LEVEL 8.9 MG/DL (8.8-10.2); CARBON DIOXIDE LEVEL 27 MEQ/L (21-32); CHLORIDE LEVEL 112 MEQ/L (98-107); CREATININE FOR GFR 1.06 MG/DL (0.70-1.30); GLOMERULAR FILTRATION RATE > 60.0 (>49); GLUCOSE, FASTING 87 MG/DL (70-100); POTASSIUM SERUM 4.4 MEQ/L (3.5-5.1); SODIUM LEVEL 143 MEQ/L (136-145); TOTAL PROTEIN 6.9 GM/DL (6.4-8.2)
[2021-09-03 18:29] LABS: TOTAL 25(OH) VITAMIN D 66.8 NG/ML (30.0-100.0)
== END ==
LOC: M PLALAB 15:56
PROVIDERS: ATTEND Physician Assistant
DX: R51.9 Headache, unspecified (principal); R53.81 Other malaise

== ENCOUNTER → 2021-09-03 | Outpatient (CLI) | payer BC ==
[2021-09-03 18:03] LABS: APPEARANCE, URINE CLEAR (CLEAR); BACTERIA, URINE AUTO NEGATIVE (NEGATIVE); BILIRUBIN, URINE AUTO NEGATIVE (NEGATIVE); BLOOD, URINE BLOOD NEGATIVE (NEGATIVE); COLOR, URINE YELLOW (YELLOW); GLUCOSE, URINE (UA) AUTO NEGATIVE (NEGATIVE); KETONE, URINE AUTO NEGATIVE (NEGATIVE); LEUKOCYTE ESTERASE, URINE AUTO NEGATIVE (NEGATIVE); MUCUS, URINE SMALL (NEGATIVE); NITRITE, URINE AUTO NEGATIVE (NEGATIVE); PROTEIN, URINE AUTO NEGATIVE (NEGATIVE); RBC, URINE AUTO 0 /HPF (0-3); SPECIFIC GRAVITY URINE AUTO 1.013 (1.002-1.035); SQUAMOUS EPITHELIAL CELL UR AU 0 /HPF (0-6); UROBILINOGEN, URINE AUTO 0.2 mg/dL (0.0-2.0); WBC, URINE AUTO 0 /HPF (0-3)
[2021-09-03 18:23] LABS: ALBUMIN 4.2 GM/DL (3.2-5.2); ALT/SGPT 35 U/L (12-78); BILIRUBIN,TOTAL 0.5 MG/DL (0.2-1.0); BLOOD UREA NITROGEN 11 MG/DL (7-18); CALCIUM LEVEL 9.1 MG/DL (8.8-10.2); CARBON DIOXIDE LEVEL 28 MEQ/L (21-32); CHLORIDE LEVEL 110 MEQ/L (98-107); CREATININE FOR GFR 1.08 MG/DL (0.70-1.30); GLOMERULAR FILTRATION RATE > 60.0 (>49); GLUCOSE, FASTING 86 MG/DL (70-100); POTASSIUM SERUM 4.2 MEQ/L (3.5-5.1); SODIUM LEVEL 142 MEQ/L (136-145); TOTAL PROTEIN 6.8 GM/DL (6.4-8.2)
[2021-09-03 19:35] LABS: GC DNA AMPLIFICATION NEGATIVE (NEGATIVE)
== END ==
LOC: M PLAIMG 15:59 → M PLALAB 15:59
PROVIDERS: ATTEND Internal Medicine Infectious Disease
DX: B20 Human immunodeficiency virus [HIV] disease (principal); R06.00 Dyspnea, unspecified

== ENCOUNTER → 2021-09-10 | Outpatient (CLI) | payer BC ==
[2021-09-10 17:55] LABS: APPEARANCE, URINE CLEAR (CLEAR); BACTERIA, URINE AUTO NEGATIVE (NEGATIVE); BILIRUBIN, URINE AUTO NEGATIVE (NEGATIVE); BLOOD, URINE BLOOD NEGATIVE (NEGATIVE); COLOR, URINE STRAW (YELLOW); GLUCOSE, URINE (UA) AUTO NEGATIVE (NEGATIVE); KETONE, URINE AUTO NEGATIVE (NEGATIVE); LEUKOCYTE ESTERASE, URINE AUTO NEGATIVE (NEGATIVE); NITRITE, URINE AUTO NEGATIVE (NEGATIVE); PROTEIN, URINE AUTO NEGATIVE (NEGATIVE); RBC, URINE AUTO 0 /HPF (0-3); SPECIFIC GRAVITY URINE AUTO 1.003 (1.002-1.035); SQUAMOUS EPITHELIAL CELL UR AU 0 /HPF (0-6); UROBILINOGEN, URINE AUTO 0.2 mg/dL (0.0-2.0); WBC, URINE AUTO 0 /HPF (0-3)
[2021-09-10 18:21] LABS: ALBUMIN 4.1 GM/DL (3.2-5.2); ALT/SGPT 39 U/L (12-78); BILIRUBIN,TOTAL 0.4 MG/DL (0.2-1.0); BLOOD UREA NITROGEN 10 MG/DL (7-18); CALCIUM LEVEL 9.5 MG/DL (8.8-10.2); CARBON DIOXIDE LEVEL 29 MEQ/L (21-32); CHLORIDE LEVEL 108 MEQ/L (98-107); CREATININE FOR GFR 1.19 MG/DL (0.70-1.30); GLOMERULAR FILTRATION RATE > 60.0 (>49); GLUCOSE, FASTING 94 MG/DL (70-100); POTASSIUM SERUM 4.2 MEQ/L (3.5-5.1); SODIUM LEVEL 141 MEQ/L (136-145)
[2021-09-11 00:20] LABS: GC DNA AMPLIFICATION NEGATIVE (NEGATIVE)
== END ==
LOC: M LAB 17:02
PROVIDERS: ATTEND Internal Medicine Infectious Disease
DX: B20 Human immunodeficiency virus [HIV] disease (principal)

== ENCOUNTER → 2021-09-24 | Outpatient (CLI) | payer BC ==
[2021-09-24 13:40] LABS: APPEARANCE, URINE CLEAR (CLEAR); BACTERIA, URINE AUTO NEGATIVE (NEGATIVE); BILIRUBIN, URINE AUTO NEGATIVE (NEGATIVE); BLOOD, URINE BLOOD NEGATIVE (NEGATIVE); COLOR, URINE YELLOW (YELLOW); GLUCOSE, URINE (UA) AUTO NEGATIVE (NEGATIVE); KETONE, URINE AUTO TRACE mg/dL (NEGATIVE); LEUKOCYTE ESTERASE, URINE AUTO NEGATIVE (NEGATIVE); MUCUS, URINE SMALL (NEGATIVE); NITRITE, URINE AUTO NEGATIVE (NEGATIVE); PROTEIN, URINE AUTO NEGATIVE (NEGATIVE); RBC, URINE AUTO 0 /HPF (0-3); SPECIFIC GRAVITY URINE AUTO 1.015 (1.002-1.035); SQUAMOUS EPITHELIAL CELL UR AU 0 /HPF (0-6); UROBILINOGEN, URINE AUTO 0.2 mg/dL (0.0-2.0); WBC, URINE AUTO 0 /HPF (0-3)
[2021-09-24 13:57] LABS: ALBUMIN 3.9 GM/DL (3.2-5.2); ALT/SGPT 42 U/L (12-78); BILIRUBIN,TOTAL 0.6 MG/DL (0.2-1.0); BLOOD UREA NITROGEN 15 MG/DL (7-18); CALCIUM LEVEL 8.9 MG/DL (8.8-10.2); CARBON DIOXIDE LEVEL 26 MEQ/L (21-32); CHLORIDE LEVEL 108 MEQ/L (98-107); GLOMERULAR FILTRATION RATE > 60.0 (>49); GLUCOSE, FASTING 101 MG/DL (70-100); POTASSIUM SERUM 4.4 MEQ/L (3.5-5.1); SODIUM LEVEL 140 MEQ/L (136-145); TOTAL PROTEIN 6.7 GM/DL (6.4-8.2)
[2021-09-24 14:58] LABS: GC DNA AMPLIFICATION NEGATIVE (NEGATIVE)
[2021-09-26 06:08] LABS: % CD8 Pos Lymph 35.9 % (12.0-35.5); %CD4 Pos Lymphs 28.3 % (30.8-58.5); ABS Basophils 0.1 x10E3/uL (0.0-0.2); ABS Eosinophils 0.2 x10E3/uL (0.0-0.4); ABS Monocytes 0.6 x10E3/uL (0.1-0.9); ABS Neutophils 2.8 x10E3/uL (1.4-7.0); Abs CD4 Helper 566 /uL (359-1519); Abs CD8 Suppres 718 /uL (109-897); CD4/CD8 Ratio 0.79 (0.92-3.72); Eosinophils 3 % (Not Estab.); HCT 44.6 % (37.5-51.0); HGB 15.6 g/dL (13.0-17.7); HIV-1 RNA PCR QUANT 1 LC162545 <20 copies/mL (.); Immature Grans 0 % (Not Estab.); Lymphocytes 36 % (Not Estab.); MCH 33.3 pg (26.6-33.0); MCV 95 fL (79-97); Monocytes 10 % (Not Estab.); Neutrophils 50 % (Not Estab.); Platelets 258 x10E3/uL (150-450); RBC 4.69 x10E6/uL (4.14-5.80); WBC 5.7 x10E3/uL (3.4-10.8)
== END ==
LOC: M PLALAB 11:31
PROVIDERS: ATTEND Internal Medicine Infectious Disease
DX: B20 Human immunodeficiency virus [HIV] disease (principal)

== ENCOUNTER → 2021-11-27 | Outpatient (CLI) | payer BC ==
[2021-11-27 13:46] LABS: ALBUMIN 3.9 GM/DL (3.2-5.2); BILIRUBIN,DIRECT 0.1 MG/DL (0.0-0.2); BILIRUBIN,TOTAL 0.5 MG/DL (0.2-1.0); TOTAL PROTEIN 6.8 GM/DL (6.4-8.2)
[2021-11-28 14:09] LABS: RPR Reactive (Non Reactive)
== END ==
LOC: M PLALAB 09:59
PROVIDERS: ATTEND Internal Medicine Infectious Disease
DX: A52.8 Late syphilis, latent (principal)

== ENCOUNTER → 2022-04-04 | Outpatient (CLI) | payer BC ==
[~2022-04-04] MED LIST changes: -MAXA10TA14 PO; +RIZA10TA64 PO
[2022-04-04 12:18] LABS: BILIRUBIN,TOTAL 0.4 MG/DL (0.2-1.0); CALCIUM LEVEL 9.4 MG/DL (8.8-10.2); CREATININE FOR GFR 1.34 MG/DL (0.70-1.30); GLOMERULAR FILTRATION RATE 57.7 (>49); POTASSIUM SERUM 4.6 MEQ/L (3.5-5.1); TOTAL PROTEIN 6.8 GM/DL (6.4-8.2)
[2022-04-04 17:07] LABS: GC DNA AMPLIFICATION NEGATIVE (NEGATIVE)
[2022-04-04 17:08] LABS: GC DNA AMPLIFICATION NEGATIVE (NEGATIVE)
[2022-04-04 17:50] LABS: GC DNA AMPLIFICATION NEGATIVE (NEGATIVE)
[2022-04-06 05:08] LABS: % CD8 Pos Lymph 36.1 % (12.0-35.5); %CD4 Pos Lymphs 36.1 % (30.8-58.5); ABS Basophils 0.1 x10E3/uL (0.0-0.2); ABS Eosinophils 0.2 x10E3/uL (0.0-0.4); ABS Lymphs 1.6 x10E3/uL (0.7-3.1); ABS Monocytes 0.5 x10E3/uL (0.1-0.9); ABS Neutophils 2.5 x10E3/uL (1.4-7.0); Abs CD4 Helper 578 /uL (359-1519); Abs CD8 Suppres 578 /uL (109-897); Eosinophils 3 % (Not Estab.); HCT 46.7 % (37.5-51.0); HIV-1 RNA PCR QUANT 2 LC550285 <20 copies/mL (.); Immature Grans 0 % (Not Estab.); Lymphocytes 33 % (Not Estab.); MCH 32.9 pg (26.6-33.0); MCHC 34.3 g/dL (31.5-35.7); MCV 96 fL (79-97); Monocytes 10 % (Not Estab.); Neutrophils 52 % (Not Estab.); Platelets 215 x10E3/uL (150-450); RBC 4.87 x10E6/uL (4.14-5.80); RDW 12.2 % (11.6-15.4); RPR Reactive (Non Reactive); WBC 4.8 x10E3/uL (3.4-10.8)
== END ==
LOC: M PLALAB 09:47
PROVIDERS: ATTEND Internal Medicine Infectious Disease
DX: B20 Human immunodeficiency virus [HIV] disease (principal); Z11.3 Encounter for screening for infections with a predominantly sexual mode of transmission

== ENCOUNTER → 2022-08-19 | Outpatient (CLI) | payer BC ==
[~2022-08-19] MED LIST changes: -ENAL-36 PO; +ENAL1TAB50 PO
[2022-08-19 17:12] LABS: ALBUMIN 4.1 G/DL (3.2-5.2); ALKALINE PHOSPHATASE 56 U/L (46-116); ALT/SGPT 29 U/L (7.0-40); AST/SGOT 25 U/L (<34); BILIRUBIN,TOTAL 0.8 MG/DL (0.3-1.2); BLOOD UREA NITROGEN 16 MG/DL (9-23); CALCIUM LEVEL 8.8 MG/DL (8.3-10.6); CARBON DIOXIDE LEVEL 27 MMOL/L (20-31); CHLORIDE LEVEL 105 MMOL/L (98-107); CREATININE FOR GFR 1.09 MG/DL (0.70-1.30); GLOMERULAR FILTRATION RATE > 60.0 (>49); GLUCOSE, FASTING 81 MG/DL (74-106); POTASSIUM SERUM 4.4 MMOL/L (3.5-5.1); SODIUM LEVEL 140 MMOL/L (136-145); TOTAL PROTEIN 6.8 G/DL (5.7-8.2)
[2022-08-20 12:30] LABS: GC DNA AMPLIFICATION NEGATIVE (NEGATIVE)
[2022-08-22 17:07] LABS: % CD8 Pos Lymph 35.3 % (12.0-35.5); %CD4 Pos Lymphs 36.2 % (30.8-58.5); ABS Basophils 0.1 x10E3/uL (0.0-0.2); ABS Eosinophils 0.1 x10E3/uL (0.0-0.4); ABS Lymphs 2.1 x10E3/uL (0.7-3.1); ABS Monocytes 0.4 x10E3/uL (0.1-0.9); ABS Neutophils 2.7 x10E3/uL (1.4-7.0); Abs CD4 Helper 760 /uL (359-1519); Abs CD8 Suppres 741 /uL (109-897); CD4/CD8 Ratio 1.03 (0.92-3.72); Eosinophils 2 % (Not Estab.); HCT 45.6 % (37.5-51.0); HEPATITIS C QUANTITATION HCV Not Detected IU/mL (.); HGB 16.5 g/dL (13.0-17.7); HIV-1 RNA PCR QUANT 2 LC550285 <20 copies/mL (.); Immature Grans 0 % (Not Estab.); Lymphocytes 38 % (Not Estab.); MCH 35.2 pg (26.6-33.0); MCHC 36.2 g/dL (31.5-35.7); MCV 97 fL (79-97); Monocytes 8 % (Not Estab.); Neutrophils 51 % (Not Estab.); Platelets 215 x10E3/uL (150-450); RBC 4.69 x10E6/uL (4.14-5.80); RDW 13.2 % (11.6-15.4); RPR Non Reactive (Non Reactive); WBC 5.4 x10E3/uL (3.4-10.8)
== END ==
LOC: M PLALAB 14:10
PROVIDERS: ATTEND Internal Medicine Infectious Disease
DX: B20 Human immunodeficiency virus [HIV] disease (principal); Z11.3 Encounter for screening for infections with a predominantly sexual mode of transmission; Z86.19 Personal history of other infectious and parasitic diseases; M25.562 Pain in left knee; R85.612 Low grade squamous intraepithelial lesion on cytologic smear of anus (LGSIL)

== ENCOUNTER → 2022-09-10 | Outpatient (CLI) | payer BC ==
[~2022-09-10] MED LIST changes: +PROHANCE 279.3MG/ML 15ML VIAL ONE; +PROHANCE 279.3MG/ML 5ML VIAL ONE
== END ==
LOC: M PLAIMG 07:15
PROVIDERS: ATTEND Internal Medicine Infectious Disease
DX: G43.709 Chronic migraine without aura, not intractable, without status migrainosus (principal); M54.2 Cervicalgia; M62.838 Other muscle spasm
CPT/HCPCS: 70551; 72156; A9576

== ENCOUNTER → 2022-09-13 | Outpatient (CLI) | payer BC ==
[~2022-09-13] MED LIST changes: -PROHANCE 279.3MG/ML 15ML VIAL ONE; -PROHANCE 279.3MG/ML 5ML VIAL ONE
[2022-09-13 17:38] LABS: BASO # 0.1 10^3/uL (0.0-0.2); BASO % 1.4 % (0.0-1.0); EOS # 0.2 10^3/uL (0.0-0.5); EOS % 2.6 % (0.0-3.0); HEMATOCRIT 49.5 % (42.0-52.0); HEMOGLOBIN 16.7 g/dl (13.5-17.5); LYMPH # 2.4 10^3/uL (1.5-5.0); LYMPH % 33.1 % (24.0-44.0); MEAN CORPUSCULAR HEMOGLOBIN 33.6 pg (27.0-33.0); MEAN CORPUSCULAR HGB CONC 33.7 g/dl (32.0-36.5); MEAN CORPUSCULAR VOLUME 99.6 fl (80.0-96.0); MONO # 0.7 10^3/uL (0.0-0.8); MONO % 9.3 % (2.0-8.0); NEUTROPHILS # 3.8 10^3/uL (1.5-8.5); PLATELET COUNT, AUTOMATED 243 10^3/uL (150-450); RED BLOOD COUNT 4.97 10^6/uL (4.30-6.10); WHITE BLOOD COUNT 7.2 10^3/uL (4.0-10.0)
[2022-09-13 19:30] LABS: ERYTHROCYTE SEDIMENTATION RATE 2 mm/hr (0-20)
== END ==
LOC: M PLALAB 14:29
PROVIDERS: ATTEND Internal Medicine Infectious Disease
DX: M50.30 Other cervical disc degeneration, unspecified cervical region (principal); M25.48 Effusion, other site

== ENCOUNTER → 2022-11-12 | Outpatient (CLI) | payer BC | LOC: M WUC 15:14 | PROVIDERS: ATTEND Internal Medicine Infectious Disease | DX: B20 Human immunodeficiency virus [HIV] disease (principal) ==

== ENCOUNTER → 2022-12-05 | Outpatient (CLI) | payer BC | LOC: M PLAIMG 14:49 | PROVIDERS: ATTEND Internal Medicine Infectious Disease | DX: M79.661 Pain in right lower leg (principal) ==

== ENCOUNTER → 2022-12-05 | Outpatient (CLI) | payer BC | LOC: M WHC 14:46 | PROVIDERS: ATTEND Internal Medicine Infectious Disease | DX: M79.661 Pain in right lower leg (principal) ==

== ENCOUNTER → 2023-02-17 | Outpatient (CLI) | payer BC ==
[2023-02-17 20:00] LABS: GC DNA AMPLIFICATION NEGATIVE (NEGATIVE)
[2023-02-17 20:29] LABS: GC DNA AMPLIFICATION NEGATIVE (NEGATIVE)
[2023-02-19 23:07] LABS: RPR Reactive (Non Reactive)
== END ==
LOC: M PLALAB 14:13
PROVIDERS: ATTEND Internal Medicine Infectious Disease
DX: Z11.3 Encounter for screening for infections with a predominantly sexual mode of transmission (principal); Z86.19 Personal history of other infectious and parasitic diseases; B20 Human immunodeficiency virus [HIV] disease

== ENCOUNTER → 2023-03-06 | Outpatient (CLI) | payer BC | LOC: M WHC 08:29 | PROVIDERS: ATTEND Internal Medicine Infectious Disease | DX: K70.30 Alcoholic cirrhosis of liver without ascites (principal) ==

== ENCOUNTER → 2023-04-29 | Outpatient (CLI) | payer BC | LOC: M WUC 13:46 | PROVIDERS: ATTEND Internal Medicine Infectious Disease | DX: B20 Human immunodeficiency virus [HIV] disease (principal); Z86.19 Personal history of other infectious and parasitic diseases ==

== ENCOUNTER → 2023-05-22 | Outpatient (CLI) | payer BC ==
[2023-05-22 17:14] LABS: CHLAMYDIA DNA AMPLIFICATION NEGATIVE (NEGATIVE); GC DNA AMPLIFICATION NEGATIVE (NEGATIVE)
[2023-05-22 17:15] LABS: CHLAMYDIA DNA AMPLIFICATION NEGATIVE (NEGATIVE); GC DNA AMPLIFICATION NEGATIVE (NEGATIVE)
[2023-05-24 13:07] LABS: RPR Reactive (Non Reactive)
== END ==
LOC: M PLALAB 14:14
PROVIDERS: ATTEND Internal Medicine Infectious Disease
DX: A53.9 Syphilis, unspecified (principal); Z11.3 Encounter for screening for infections with a predominantly sexual mode of transmission

== ENCOUNTER → 2023-09-18 | Outpatient (CLI) | payer BC ==
[~2023-09-18] MED LIST changes: +ALPR0.5T3 PO; +CITA40TA7 PO; +DARU800T PO; +DOLU1TAB PO; +ERGO500029 PO; +LOPE2TAB12 PO; +MULT-90 PO; +PANT40TA29 PO; +RITO100T PO
[2023-09-18 16:06] LABS: ALKALINE PHOSPHATASE 64 U/L (46-116); ALT/SGPT 35 U/L (7.0-40); AST/SGOT 26 U/L (<34); BILIRUBIN,TOTAL 0.5 MG/DL (0.3-1.2); BLOOD UREA NITROGEN 13 MG/DL (9-23); CALCIUM LEVEL 9.4 MG/DL (8.3-10.6); CARBON DIOXIDE LEVEL 28 MMOL/L (20-31); CHLORIDE LEVEL 107 MMOL/L (98-107); CREATININE FOR GFR 0.98 MG/DL (0.70-1.30); GLOMERULAR FILTRATION RATE > 60.0 (>49); GLUCOSE, FASTING 84 MG/DL (74-106); POTASSIUM SERUM 4.3 MMOL/L (3.5-5.1); SODIUM LEVEL 138 MMOL/L (136-145); TOTAL PROTEIN 6.6 G/DL (5.7-8.2)
[2023-09-18 17:09] LABS: GC DNA AMPLIFICATION NEGATIVE (NEGATIVE)
[2023-09-18 17:10] LABS: GC DNA AMPLIFICATION NEGATIVE (NEGATIVE)
[2023-09-18 17:12] LABS: GC DNA AMPLIFICATION NEGATIVE (NEGATIVE)
[2023-09-20 21:06] LABS: % CD8 Pos Lymph 34.8 % (12.0-35.5); %CD4 Pos Lymphs 33.4 % (30.8-58.5); ABS Basophils 0.1 x10E3/uL (0.0-0.2); ABS Eosinophils 0.2 x10E3/uL (0.0-0.4); ABS Lymphs 2.2 x10E3/uL (0.7-3.1); ABS Monocytes 0.6 x10E3/uL (0.1-0.9); ABS Neutophils 3.2 x10E3/uL (1.4-7.0); Abs CD4 Helper 735 /uL (359-1519); Abs CD8 Suppres 766 /uL (109-897); CD4/CD8 Ratio 0.96 (0.92-3.72); Eosinophils 3 % (Not Estab.); HCT 45.1 % (37.5-51.0); HIV-1 RNA PCR QUANT 2 LC550285 <20 copies/mL (.); Immature Grans 0 % (Not Estab.); Lymphocytes 36 % (Not Estab.); MCH 33.3 pg (26.6-33.0); MCHC 33.3 g/dL (31.5-35.7); MCV 100 fL (79-97); Monocytes 9 % (Not Estab.); Neutrophils 51 % (Not Estab.); Platelets 219 x10E3/uL (150-450); RDW 12.8 % (11.6-15.4); RPR Reactive (Non Reactive); WBC 6.3 x10E3/uL (3.4-10.8)
== END ==
LOC: M PLALAB 14:16
PROVIDERS: ATTEND Internal Medicine Infectious Disease
DX: B20 Human immunodeficiency virus [HIV] disease (principal); K70.30 Alcoholic cirrhosis of liver without ascites; Z11.3 Encounter for screening for infections with a predominantly sexual mode of transmission; A53.9 Syphilis, unspecified

== ENCOUNTER 2023-12-31 06:32 | Day surgery (SDC) | payer BC ==
[~2023-12-31] VITALS: Ht 182.9 cm; Wt 86.2 kg
[~2023-12-31 06:32] MED LIST changes: +NS 1,000 ML IV ONE; +fentaNYL 100 MCG/2 ML INJECTION As Ordered ONE
[2023-12-31] MEDS ORDERED: propofoL 200 MG/20 ML VIAL As Ordered ONE (06:55)
[2023-12-31] MEDS ORDERED: LIDOCAINE 2% 100MG/5ML SDV (FOR ANES.) As Ordered ONE (06:55)
[2023-12-31] MEDS: NS 1,000 ML IV ONE (07:12)
[2023-12-31 08:25] VITALS: BP 123/74; TEMP 97.2; O2SAT 99
== END 2023-12-31 08:15 | disposition home or self-care (01) ==
LOC: M OPP 06:32
PROVIDERS: ATTEND Internal Medicine Gastroenterology
DX: D12.6 Benign neoplasm of colon, unspecified (principal); K64.0 First degree hemorrhoids; R19.7 Diarrhea, unspecified; K22.89 Other specified disease of esophagus; R12 Heartburn; Z79.2 Long term (current) use of antibiotics; Z79.891 Long term (current) use of opiate analgesic; Z79.899 Other long term (current) drug therapy; Z88.2 Allergy status to sulfonamides; Z91.018 Allergy to other foods
CPT/HCPCS: 43239; 45380; 45385; 88305; J3010

== ENCOUNTER → 2024-02-02 | Outpatient (CLI) | payer BC ==
[~2024-02-02] MED LIST changes: -NS 1,000 ML IV ONE; -fentaNYL 100 MCG/2 ML INJECTION As Ordered ONE
[2024-02-02 19:31] LABS: GC DNA AMPLIFICATION NEGATIVE (NEGATIVE)
[2024-02-02 21:00] LABS: GC DNA AMPLIFICATION NEGATIVE (NEGATIVE)
[2024-02-03 12:07] LABS: RPR REACTIVE (NON-REACTIVE)
== END ==
LOC: M PLALAB 12:50
PROVIDERS: ATTEND Internal Medicine Infectious Disease
DX: Z11.3 Encounter for screening for infections with a predominantly sexual mode of transmission (principal)

== ENCOUNTER → 2024-04-22 | Outpatient (CLI) | payer BC ==
[2024-04-22 10:27] LABS: ALBUMIN 3.9 G/DL (3.2-5.2); ALKALINE PHOSPHATASE 55 U/L (40-129); ALT/SGPT 48 U/L (7.0-40); AST/SGOT 51 U/L (<34); BILIRUBIN,TOTAL 0.5 MG/DL (0.3-1.2); BLOOD UREA NITROGEN 14 MG/DL (9-23); CALCIUM LEVEL 9.7 MG/DL (8.3-10.6); CARBON DIOXIDE LEVEL 28 MMOL/L (20-31); CHLORIDE LEVEL 111 MMOL/L (98-107); CREATININE FOR GFR 1.09 MG/DL (0.70-1.30); GLOMERULAR FILTRATION RATE > 60.0 (>49); GLUCOSE, FASTING 87 MG/DL (74-106); POTASSIUM SERUM 5.1 MMOL/L (3.5-5.1); SODIUM LEVEL 143 MMOL/L (136-145); TOTAL PROTEIN 6.6 G/DL (5.7-8.2)
[2024-04-22 12:46] LABS: GC DNA AMPLIFICATION NEGATIVE (NEGATIVE)
[2024-04-22 12:52] LABS: GC DNA AMPLIFICATION NEGATIVE (NEGATIVE)
[2024-04-22 12:53] LABS: GC DNA AMPLIFICATION NEGATIVE (NEGATIVE)
[2024-04-23 11:13] LABS: RPR NON-REACTIVE (NON-REACTIVE)
[2024-04-23 11:42] LABS: HCV RNA QUANTITATION <15 NOT DETECTED IU/mL (NOT DETECTED); HCV RNA log10 <1.18 NOT DETECTED Log IU/mL (NOT DETECTED)
[2024-04-23 12:39] LABS: HIV-1 RNA PCR QUANT 2 NOT DETECTED copies/mL (NOT DETECTED); HIV-1 RNA PCR QUANT 3 NOT DETECTED (NOT DETECTED)
[2024-04-23 14:09] LABS: % CD4+ LYMPHS 33.4 % (30.8-58.5); ABSOLUTE CD4 HELPER 534 /uL (359-1519); BASOPHILS 2 % (Not Estab.); BASOPHILS ABSOLUTE 0.1 x10E3/uL (0.0-0.2); EOSINOPHILS 3 % (Not Estab.); EOSINOPHILS ABSOLUTE 0.1 x10E3/uL (0.0-0.4); HGB 15.8 g/dL (13.0-17.7); LYMPHOCYTES 32 % (Not Estab.); LYMPHOCYTES ABSOLUTE 1.6 x10E3/uL (0.7-3.1); MCH 33.5 pg (26.6-33.0); MCHC 33.6 g/dL (31.5-35.7); MCV 100 fL (79-97); MONOCYTES 10 % (Not Estab.); MONOCYTES ABSOLUTE 0.5 x10E3/uL (0.1-0.9); NEUTROPHILS 53 % (Not Estab.); NEUTROPHILS ABSOLUTE 2.8 x10E3/uL (1.4-7.0); PLT 233 x10E3/uL (150-450); RBC 4.72 x10E6/uL (4.14-5.80); RDW 12.8 % (11.6-15.4); WBC 5.2 x10E3/uL (3.4-10.8)
== END ==
LOC: M PLALAB 08:34
PROVIDERS: ATTEND Internal Medicine Infectious Disease
DX: B20 Human immunodeficiency virus [HIV] disease (principal); A52.8 Late syphilis, latent; K70.30 Alcoholic cirrhosis of liver without ascites; Z11.3 Encounter for screening for infections with a predominantly sexual mode of transmission; Z86.19 Personal history of other infectious and parasitic diseases

== ENCOUNTER → 2024-09-09 | Outpatient (CLI) | payer BC ==
[2024-09-09 15:27] LABS: HEMATOCRIT 46.4 % (42.0-52.0); HEMOGLOBIN 15.8 g/dl (13.5-17.5); MEAN CORPUSCULAR HEMOGLOBIN 34.6 pg (27.0-33.0); MEAN CORPUSCULAR HGB CONC 34.1 g/dl (32.0-36.5); MEAN CORPUSCULAR VOLUME 101.8 fl (80.0-96.0); PLATELET COUNT, AUTOMATED 255 10^3/uL (150-450); RED BLOOD COUNT 4.56 10^6/uL (4.30-6.10); WHITE BLOOD COUNT 5.9 10^3/uL (4.0-10.0)
[2024-09-09 15:56] LABS: ALBUMIN 4.1 G/DL (3.2-5.2); ALKALINE PHOSPHATASE 59 U/L (40-129); ALT/SGPT 25 U/L (7.0-40); AST/SGOT 17 U/L (<34); BILIRUBIN,TOTAL 0.6 MG/DL (0.3-1.2); BLOOD UREA NITROGEN 15 MG/DL (9-23); CALCIUM LEVEL 9.4 MG/DL (8.3-10.6); CARBON DIOXIDE LEVEL 25 MMOL/L (20-31); CHLORIDE LEVEL 106 MMOL/L (98-107); CHOLESTEROL LEVEL 193 MG/DL (<200); CHOLESTEROL RISK RATIO 4.57 (<5); CREATININE FOR GFR 1.02 MG/DL (0.70-1.30); GLOMERULAR FILTRATION RATE > 60.0 (>49); GLUCOSE, FASTING 88 MG/DL (74-106); HDL CHOLESTEROL 42.2 MG/DL (>40); LDL CHOLESTEROL 115.8 MG/DL (<100); NON-HDL-C 150.8 MG/DL; POTASSIUM SERUM 4.5 MMOL/L (3.5-5.1); SODIUM LEVEL 143 MMOL/L (136-145); TRIGLYCERIDES LEVEL 175 MG/DL (<150)
[2024-09-09 16:04] LABS: HEMOGLOBIN A1c 4.8 % (4.0-6.0)
== END ==
LOC: M PLALAB 11:45
PROVIDERS: ATTEND Family Medicine
DX: K76.0 Fatty (change of) liver, not elsewhere classified (principal); I10 Essential (primary) hypertension; E55.9 Vitamin D deficiency, unspecified; Z72.52 High risk homosexual behavior

== ENCOUNTER → 2024-10-25 | Outpatient (CLI) | payer BC ==
[2024-10-25 17:18] LABS: GC DNA AMPLIFICATION NEGATIVE (NEGATIVE)
[2024-10-25 17:59] LABS: ALBUMIN 4.1 G/DL (3.2-5.2); ALKALINE PHOSPHATASE 58 U/L (40-129); ALT/SGPT 44 U/L (7.0-40); AST/SGOT 83 U/L (<34); BILIRUBIN,TOTAL 0.8 MG/DL (0.3-1.2); BLOOD UREA NITROGEN 17 MG/DL (9-23); CALCIUM LEVEL 9.2 MG/DL (8.3-10.6); CARBON DIOXIDE LEVEL 23 MMOL/L (20-31); CHLORIDE LEVEL 108 MMOL/L (98-107); CREATININE FOR GFR 0.98 MG/DL (0.70-1.30); GLOMERULAR FILTRATION RATE 86.1 (>49); GLUCOSE, FASTING 89 MG/DL (74-106); POTASSIUM SERUM 4.5 MMOL/L (3.5-5.1); SODIUM LEVEL 141 MMOL/L (136-145); TOTAL PROTEIN 6.6 G/DL (5.7-8.2)
== END ==
LOC: M WUC 14:04
PROVIDERS: ATTEND Internal Medicine Infectious Disease
DX: B20 Human immunodeficiency virus [HIV] disease (principal); A52.8 Late syphilis, latent; Z11.3 Encounter for screening for infections with a predominantly sexual mode of transmission

== ENCOUNTER 2024-11-07 12:07 | Emergency (ER) | payer BC ==
[~2024-11-07] VITALS: Ht 182.9 cm; Wt 90.6 kg
[2024-11-07 12:42] LABS: BASO # 0.1 10^3/uL (0.0-0.2); BASO % 1.2 % (0.0-1.0); EOS # 0.1 10^3/uL (0.0-0.5); EOS % 2.2 % (0.0-3.0); HEMOGLOBIN 15.8 g/dl (13.5-17.5); LYMPH % 33.1 % (24.0-44.0); MEAN CORPUSCULAR HEMOGLOBIN 33.9 pg (27.0-33.0); MEAN CORPUSCULAR HGB CONC 35.1 g/dl (32.0-36.5); MEAN CORPUSCULAR VOLUME 96.6 fl (80.0-96.0); MONO # 0.5 10^3/uL (0.0-0.8); MONO % 8.8 % (2.0-8.0); NEUTROPHILS # 3.3 10^3/uL (1.5-8.5); NEUTROPHILS % 54.4 % (36.0-66.0); PLATELET COUNT, AUTOMATED 220 10^3/uL (150-450); RED BLOOD COUNT 4.66 10^6/uL (4.30-6.10)
[2024-11-07 12:56] LABS: INR 0.95; PARTIAL THROMBOPLASTIN TIME 25.4 SECONDS (24.8-34.2); PROTHROMBIN TIME 12.9 SECONDS (12.5-14.5)
[2024-11-07 13:14] LABS: CK-MB VALUE MASS 1.8 NG/ML (<3.6)
[2024-11-07 13:15] LABS: BLOOD UREA NITROGEN 14 MG/DL (9-23); CALCIUM LEVEL 9.1 MG/DL (8.3-10.6); CARBON DIOXIDE LEVEL 23 MMOL/L (20-31); CHLORIDE LEVEL 105 MMOL/L (98-107); CPK CREATINE PHOSPHOKINASE 222 U/L (46-171); CREATININE FOR GFR 0.98 MG/DL (0.70-1.30); GLOMERULAR FILTRATION RATE 86.1 (>49); GLUCOSE, FASTING 94 MG/DL (74-106); MB/CK RELATIVE INDEX 0.81 (< OR =4); POTASSIUM SERUM 4.3 MMOL/L (3.5-5.1); SODIUM LEVEL 140 MMOL/L (136-145)
[2024-11-07 14:01] VITALS: BP 151/89
[2024-11-07] MEDS: NITROGLYCERIN 0.4MG SUBL TABLET SL PRN (14:01)
[2024-11-07] MEDS: ASPIRIN 81MG CHEW TABLET PO ONE (14:01)
[2024-11-07] MEDS ORDERED: ISOVUE-370 76% 100ML VIAL As Ordered ONE (14:04)
[2024-11-07 14:08] LABS: LIPASE 42 U/L (12-53)
[2024-11-07 14:09] LABS: CK-MB VALUE MASS 1.8 NG/ML (<3.6)
[2024-11-07 14:10] LABS: ALBUMIN 4.5 G/DL (3.2-5.2); ALKALINE PHOSPHATASE 57 U/L (40-129); ALT/SGPT 28 U/L (7.0-40); AST/SGOT 28 U/L (<34); BILIRUBIN,DIRECT 0.2 MG/DL (<0.4); BILIRUBIN,TOTAL 0.8 MG/DL (0.3-1.2)
[2024-11-07 14:11] LABS: CPK CREATINE PHOSPHOKINASE 188 U/L (46-171); MB/CK RELATIVE INDEX 0.95 (< OR =4)
[2024-11-07] MEDS ORDERED: COLC0.6T47 PO (15:35)
[2024-11-07] MEDS ORDERED: IBUP-1022 PO (15:36)
[2024-11-07 15:45] VITALS: BP 135/78; TEMP 98.7; O2SAT 98
[2024-11-07] MEDS: IBUPROFEN 600MG TAB PO ONE (15:46)
[2024-11-07] MEDS: COLCHICINE 0.6 MG TABLET PO ONE (15:47)
== END 2024-11-07 15:53 | disposition home or self-care (01) ==
LOC: M ED 12:07
DX: I30.9 Acute pericarditis, unspecified (principal); I31.8 Other specified diseases of pericardium; R91.8 Other nonspecific abnormal finding of lung field; E78.5 Hyperlipidemia, unspecified; K21.9 Gastro-esophageal reflux disease without esophagitis; B20 Human immunodeficiency virus [HIV] disease; Z86.19 Personal history of other infectious and parasitic diseases; M54.30 Sciatica, unspecified side; M81.0 Age-related osteoporosis without current pathological fracture; K76.0 Fatty (change of) liver, not elsewhere classified; Z79.899 Other long term (current) drug therapy; Z88.2 Allergy status to sulfonamides; Z91.018 Allergy to other foods
CPT/HCPCS: 71045; 71275; 74177; 80048; 80076; 82550; 82553; 83690; 84484; 85025; 85610; 85730; 93005; 93041; 94760; 99285; Q9967

== ENCOUNTER → 2025-03-15 | Outpatient (CLI) | payer BC ==
[~2025-03-15] MED LIST changes: +COLC0.6T53 PO; +IBUP600T42 PO
== END ==
LOC: M PLAIMG 07:55
PROVIDERS: ATTEND Family Medicine
DX: R91.1 Solitary pulmonary nodule (principal)

== ENCOUNTER → 2025-04-28 | Outpatient (CLI) | payer BC ==
[2025-04-28 13:24] LABS: ALT/SGPT 32 U/L (7.0-40); AST/SGOT 31 U/L (<34); CALCIUM LEVEL 9.1 MG/DL (8.3-10.6); CARBON DIOXIDE LEVEL 28 MMOL/L (20-31); CHLORIDE LEVEL 103 MMOL/L (98-107); CREATININE FOR GFR 1.17 MG/DL (0.70-1.30); GLOMERULAR FILTRATION RATE 69.6 (>49); POTASSIUM SERUM 4.4 MMOL/L (3.5-5.1); PSA SCREENING 1.53 NG/ML (< 4.00); SODIUM LEVEL 139 MMOL/L (136-145)
[2025-04-28 15:53] LABS: GC DNA AMPLIFICATION NEGATIVE (NEGATIVE)
[2025-04-28 15:54] LABS: GC DNA AMPLIFICATION NEGATIVE (NEGATIVE)
[2025-04-30 00:34] LABS: HIV-1 RNA PCR QUANT 2 NOT DETECTED copies/mL (NOT DETECTED); HIV-1 RNA PCR QUANT 3 NOT DETECTED (NOT DETECTED)
[2025-04-30 00:47] LABS: HCV RNA QUANTITATION <15 NOT DETECTED IU/mL (NOT DETECTED); HCV RNA log10 <1.18 NOT DETECTED Log IU/mL (NOT DETECTED)
[2025-04-30 18:44] LABS: % CD4 32 % (30-61); %CD8 39 % (12-42); ABSOLUTE CD4 CELLS 515 cells/uL (490-1740); ABSOLUTE CD8 CELLS 618 cells/uL (180-1170); ABSOLUTE LYMPHOCYTES 1601 cells/uL (850-3900); CD4 CD8 RATIO 0.83 (0.86-5.00)
[2025-05-02 09:53] LABS: T PALLIDUM ANTIBODIES POSITIVE (NEGATIVE)
[2025-05-02 14:07] LABS: RPR NON-REACTIVE (NON-REACTIVE)
[2025-05-04 21:47] LABS: T PALLIDUM ANTIBODY,EIA Reactive (Nonreactive)
== END ==
LOC: M PLALAB 09:51
PROVIDERS: ATTEND Internal Medicine Infectious Disease
DX: R85.612 Low grade squamous intraepithelial lesion on cytologic smear of anus (LGSIL) (principal); K70.30 Alcoholic cirrhosis of liver without ascites; Z12.5 Encounter for screening for malignant neoplasm of prostate; Z86.19 Personal history of other infectious and parasitic diseases; B20 Human immunodeficiency virus [HIV] disease; Z11.3 Encounter for screening for infections with a predominantly sexual mode of transmission; A52.8 Late syphilis, latent

== ENCOUNTER → 2025-06-02 | Outpatient (CLI) | payer BC | LOC: M RAD 09:47 | PROVIDERS: ATTEND Internal Medicine Infectious Disease | DX: K70.30 Alcoholic cirrhosis of liver without ascites (principal); R93.2 Abnormal findings on diagnostic imaging of liver and biliary tract ==